=== PATIENT | male | born 1960 | race Caucasian/White ===

== ENCOUNTER 2018-12-01 16:42 | Inpatient (IN) | payer BC ==
[~2018-12-01] VITALS: Ht 180.3 cm; Wt 94.5 kg
[2018-12-01 16:47] VITALS: Ht 180.3 cm; Wt 94.5 kg
--- NOTE | 2018-12-01 17:09 | NUR ---
PT WALKED TO ROOM WITH NUMBNESS ON LEFT ARM. BUT NO NUMBNESS RIGHT NOW. PT SPEAKS CLEARLY NOW.
[2018-12-01 17:35] LABS: CALCIUM 9.1 mg/dL (8.5-10.1); CARBON DIOXIDE 23.8 mmol/L (21-32); CHLORIDE SERUM 105 mmol/L (98-107); CREATININE SERUM 1.2 mg/dL (0.7-1.3); GFR1 > 60 mL/min; GLUCOSE SERUM 158 mg/dL (74-106); POTASSIUM SERUM 3.6 mmol/L (3.5-5.1); SODIUM SERUM 141 mmol/L (136-145)
[2018-12-01 17:40] LABS: ALBUMIN 3.7 g/dL (3.4-5.0); ALKALINE PHOSPHATASE 85 U/L (46-116); ALT/SGPT 33 U/L (16-63); AST/SGOT 24 U/L (15-37); BILIRUBIN TOTAL 0.57 mg/dL (0.20-1.00)
[2018-12-01 17:51] LABS: BASOPHIL % 0.7 % (0-2); PLATELET COUNT 213 x10^3mcL (130-400); RED CELL DISTRIBUTION WIDTH 14.4 % (11.5-14.5)
--- NOTE | 2018-12-01 18:15 | NUR ---
DR. PARRISH REASSESSED PT AND TALKED TO PT AGAIN.
[2018-12-01] MEDS ORDERED: CARVEDILOL3.125 M1 PO (19:33)
[2018-12-01] MEDS ORDERED: GOOD SENSE ASPI81 M3 PO (19:34)
[2018-12-01] MEDS ORDERED: LISINOPRIL2.5 MG PO (19:34)
[2018-12-01] MEDS ORDERED: LIPI10 PO (19:34)
--- NOTE | 2018-12-01 19:35 | NUR ---
PT RESTING IN BED TALKING TO FAMILY OVER THE PHONE, NO SLURRED SPEECH NOTED. PT HAS NO COMPLAINTS AT THIS TIME. PT VITALS ARE WNL. NO ACUTE DISTRESS NOTED.
[2018-12-01] MEDS ORDERED: ASPIRIN ADULT L81 M5 PO (19:51)
[2018-12-01] MEDS ORDERED: CARVEDILOL6.25 M1 PO (19:51)
[2018-12-01] MEDS ORDERED: LIPITOR80 MG GT (19:51)
[2018-12-01] MEDS ORDERED: LISINOPRIL10 MG PO (19:52)
--- NOTE | 2018-12-01 19:56 | NUR ---
REPORT GIVEN TO ANDREY TANNER TO ASSUME CARE OF PT.
[2018-12-01 20:12] LABS: microscopic required? NO
[2018-12-01 20:21] VITALS: BP 137/75
--- NOTE | 2018-12-01 20:23 | NUR ---
RECEIVED PT FROM ED VIA MARCELLA. ORIENTED PT TO ROOM AND SURROUNDINGS. IV NOTED TO LFA PATENT AND INTACT. TELE 4 PLACED ON PT READING NSR. INSTRUCTED PT ON THE USE OF CALL LIGHT FOR ASSISTANCE. ENDORSED PT TO PRIMARY NURSE EPIFANIO
[2018-12-01 20:24] LABS: CHOLESTEROL/HDL RATIO 3.7; MAGNESIUM 2.2 mg/dL (1.8-2.4); PHOSPHOROUS 3.7 mg/dL (2.5-4.9)
[2018-12-01 20:27] LABS: UA SPECIFIC GRAVITY <=1.005 (1.005-1.035); urine erythrocyte NEGATIVE (NEGATIVE)
[2018-12-01 20:32] LABS: T3 TOTAL 1.25 ng/mL
[2018-12-01 20:37] LABS: AMPHETAMINE QUAL UR NONE DETECTED (See below)
[2018-12-01 20:41] LABS: FREE T4 1.01 ng/dL (0.76-1.46); FREE THYROXINE INDEX 2.7 ug/dL (1.4-4.5)
--- NOTE | 2018-12-02 00:30 | NUR ---
PT AWAKE LAYING DOWN IN BED. PT AAOX4, FOLLOW COMMANDS. ABLE TO MAKE NEEDS KNOWN. SPEECH CLEAR. NO FACIAL DROOP NOTED. DENIES H/A OR DIZZINESS AT THIS TIME. DENIES ANY NUMNESS OR TINGLING. BREATHING EVEN AND UNLABORED ON RA. NO ACUTE DISTRESS NOTED. NS RUNNING TO LFA AT 100ML/HR. SITE FREE FROM REDNESS AND SWELLING. BED AT LOWEST SETTING. SIDE RAILS X2 UP. CALL LIGHT WITHING REACH. WILL CONTINUE TO MONITOR.
--- NOTE | 2018-12-02 00:45 | NUR ---
CALLED THE CALL CENTER TO HAVE THE TELE NEURO CONSULT DONE. SET EVERYTHING READY IN THE ROOM. TELE NEURO COULD NOT BE DONE AT THIS TIME DUE TO MACHINE IS NOT WORKING. ER TELE NEURO MACHINE IS NOT AVAILABLE AT THIS TIME. WILL WAIT UNTIL ER MACHINE IS AVAILABLE. RESIDENT MADE AWARE. NO OTHER ORDERS RECEIVED. WILL CONTINUE TO MONITOR.
--- NOTE | 2018-12-02 04:11 | NUR ---
CALLED ER FOR TELE NEURO MACHINE. TELE NEURO STILL IN USE. AWAITING FOR ER TO CALLED BACK WHEN TELE NEURO AVAILABLE.
[2018-12-02 05:44] VITALS: BP 133/78
--- NOTE | 2018-12-02 06:23 | NUR ---
PT SLEPT WELL THROUGHOUT THE NIGHT. BREATHING EVEN AND UNLABORED ON RA. NO FACIAL DROOP NOTED. SPEECH CLEAR. DENIES H/A AND DIZZINESS. NS RUNNING TO LFA AT 100ML/HR. SITE FREE FROM REDNESS AND SWELLING. ALL NEEDS ASSESSED AND ATTENDED TO. NO ACUTE DISTRES NOTED. BED AT LOWEST SETTING. SIDE RAILS X2 UP. CALL LIGHT WITHING REACH. TELE NEURO CONSULT RECEIVED THIS MORNING AT [address] WILL FOLLOW UP WITH PHYSICIAN FOR FURTHER ORDERS. ALL QUESTIONS AND CONCERNS ANSWERED BY . PT STATES UNDERSTANDING. WILL ENDORSE CARE TO AM NURSE.
[2018-12-02 06:36] LABS: BASOPHIL % 0.8 % (0-2); PLATELET COUNT 189 x10^3mcL (130-400); RED CELL DISTRIBUTION WIDTH 14.5 % (11.5-14.5)
[2018-12-02 06:54] LABS: CALCIUM 8.4 mg/dL (8.5-10.1); CARBON DIOXIDE 27.6 mmol/L (21-32); CHLORIDE SERUM 107 mmol/L (98-107); GFR1 > 60 mL/min; GLUCOSE SERUM 86 mg/dL (74-106); MAGNESIUM 2.1 mg/dL (1.8-2.4); POTASSIUM SERUM 3.7 mmol/L (3.5-5.1); SODIUM SERUM 143 mmol/L (136-145)
--- NOTE | 2018-12-02 07:08 | NUR ---
RECEIVED REPORT FROM EPIFANIO TANNER. PATIENT SLEEPING COMFORTABYL IN BED. IV TO LFA IS PATENT AND INFUSING NS @ 100 ML/HR. NO REDNESS OR PAIN. TELE # [address] NO INDICATION OF CHEST PAIN. PT ON ROOM AIR. NO DISTRESS NOTED. ALL QUESTIONS AND CONCERNS ADDRESSED.
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
--- NOTE | 2018-12-02 14:40 | NUR ---
PLAVIX ADMINISTERED NOW PER MD ORDER. INFORMED PATIENT THAT MRI IS SCHEDULED FOR TODAY AT 1900. PT VERBALIZED UNDERSTANDING AND AGREES TO ALL RECOMMENDED TESTS LONG HE IS ABLE TO LEAVE TONIGHT.
--- NOTE | 2018-12-02 18:33 | NUR ---
NO SIGNIFICANT CHANGES THROUGHOUT THE DAY. PT WAITING TO BE TAKEN DOWN FOR MRI @ 1900. IV TO LAC IS PATENT AND INFUSING NS @ 100 ML/HR. NO REDNESS OR PAIN. TELE # [address] PT DENIES CHEST PAIN. NO RECURRENCE OF TIA SYMPTOMS. PT ON ROMM AIR. NO C/O SOB AND NO DISTRESS NOTED. WILL ENDORSE ALL CARE TO ONCOMING NURSE.
--- NOTE | 2018-12-02 19:10 | NUR ---
PT RECEIVED FROM THE DAY SHIFT RN. PT IS ALERT AND ORIENTED X4, CALM AND COOPERATIVE WITH CARE. NO ACUTE DISTRESS NOTED. PT HAS NO COMPLAINT OF PAIN AT THIS TIME. SAFETY AND COMFORT MEASURES MAINTAINED, CALL LIGHT WITHIN REACH. WILL CONTINUE TO MONITOR AT THIS TIME.
[2018-12-02 20:42] VITALS: BP 133/81
--- NOTE | 2018-12-03 00:06 | NUR ---
PT IS RESTING IN BED WITH EYES CLOSED AT THIS TIME. NO ACUTE DISTRESS NOTED. PT HAS BEEN CALM AND COOPERATIVE WITH CARE. ALERT AND ORIENTED X4, SAFETY AND COMFORT MEASURES MAINTAINED, BED IN LOWEST POSITION, CALL LIGHT WITHIN REACH.
--- NOTE | 2018-12-03 02:13 | NUR ---
PT IS RESTING IN BED WITH EYES CLOSED AT THIS TIME. NO ACUTE DISTRESS NOTED, SAFETY AND COMFORT MEASURES MAINTAINED, BED IN LOWEST POSITION, CALL LIGHT WITHIN REACH.
--- NOTE | 2018-12-03 04:05 | NUR ---
PT IS RESTING IN BED WITH EYES CLOSED AT THIS TIME. NO ACUTE DISTRESS NOTED. PT HAS BEEN CALM AND COOPERATIVE WITH CARE. NO COMPLAINT OF PAIN AT THIS TIME. SAFETY AND COMFORT MEASURES MAINTAINED, BED IN LOWEST POSITION, CALL LIGHT WITHIN REACH.
--- NOTE | 2018-12-03 05:17 | NUR ---
PT HAS RESTED IN LONG INTERVALS THORUGHOUT THE SHIFT, NO ACUTE DISTRESS NOTED. PT HAS NO COMPLAINT OF PAIN AT THIS TIME. PT IS SALINE LOCKED AT THIS TIME, IV IS PATENT AND INTACT. SAFETY AND COMFORT MEASURES MAINTAINED, BED IN LOWEST POSITION, CALL LIGHT WITHIN REACH. WILL ENDORSE CONTINUITY OF CARE TO THE ONCOMING RN.
[2018-12-03 05:38] VITALS: BP 127/83
[2018-12-03 07:12] LABS: CALCIUM 8.6 mg/dL (8.5-10.1); CARBON DIOXIDE 22.8 mmol/L (21-32); CHLORIDE SERUM 107 mmol/L (98-107); GFR1 > 60 mL/min; GLUCOSE SERUM 94 mg/dL (74-106); MAGNESIUM 2.2 mg/dL (1.8-2.4); PHOSPHOROUS 3.9 mg/dL (2.5-4.9); POTASSIUM SERUM 3.9 mmol/L (3.5-5.1); SODIUM SERUM 142 mmol/L (136-145)
[2018-12-03 07:34] LABS: BASOPHIL % 0.6 % (0-2); PLATELET COUNT 182 x10^3mcL (130-400)
[2018-12-03 07:43] LABS: RED CELL DISTRIBUTION WIDTH 14.7 % (11.5-14.5)
--- NOTE | 2018-12-03 08:50 | NUR ---
PT AWAKE, ALERT. A/OX4. PT ON ROOM AIR WITH NO RESP DISTRESS NOTED. PT ON TELE 4, DENIES CHEST PAIN. PT DENIES DIZZINESS OR WEAKNESS. PERIPHERAL PULSES PALPABLE, NO EDEMA NOTED. IV ACCESS LFA CDI SALINE LOCKED. PT REPORTS NO ISSUES WITH ELIMINATION. PT AMBULATORY AND STEADY. DENIES PAIN. SAFETY MEASURES IN PLACE. BED LOW AND LOCKED. CALL LIGHT WITHIN REACH.
[2018-12-03 09:30] VITALS: BP 120/79
--- NOTE | 2018-12-03 09:30 | NUR ---
DUE MEDICATIONS ADMINISTERED ORDERED. NO ACUTE DISTRESS OR DISCOMFORT NOTED AT THIS TIME.
--- NOTE | 2018-12-03 09:52 | NUR ---
RECEIVED PT FROM CERTIFIED PHARMACY TECHNICIAN. PT ASLEEP AT THIS TIME. NO ACUTE DISTRESS NOTED.
--- NOTE | 2018-12-03 11:30 | NUR ---
SPOKE WITH RADIOLOGIST REGARDING MRI PROCEDURE. UPDATED PT AND FAMILY REGARDING DETAILS. PER RADIOLOGIST PAPERWORK REGARDING PT STENTS SUFFICIENT IN MOVING FORWARD WITH PROCEDURE. PT AND FAMILY AWARE. PER RADIOLOGY PT DOES NOT NEED TO BE NPO FOR PROCEDURE, PT MADE AWARE. ALL QUESTIONS AND CONCERNS ADDRESSED AT THIS TIME. PT DENIES ANY PAIN OR WEAKNESS AT THIS TIME.
--- NOTE | 2018-12-03 13:19 | NUR ---
ALL NEEDS MET AT THIS TIME. CALL LIGHT WITHIN REACH.
[2018-12-03 13:45] VITALS: BP 109/85
[2018-12-03] MEDS ORDERED: CLOPIDOGREL75 M1 PO (16:48)
--- NOTE | 2018-12-03 17:44 | NUR ---
PATIENT SLEEPING AT THIS TIME. NO ACUTE DISTRESS OR DISCOMFORT NOTED.
[2018-12-03 18:06] VITALS: BP 118/77
--- NOTE | 2018-12-03 18:53 | NUR ---
PT STABLE AT THIS TIME. PT TAKEN BY WHEELCHAIR FOR MRI PROCEDURE. ALL NEEDS MET THROUGHOUT SHIFT. WILL CONTINUE TO MONITOR AND ENDORSE CARE TO FORM PRESSER.
--- NOTE | 2018-12-03 19:30 | NUR ---
RECEIVED REPORT FROM DAY SHIFT RN, ALL QUESTION AND CONCERNS ADDRESSED. PT IN RM 209A BED B RESTING IN SEMI BELLO. PT IS A/O X4, FOLLOWS COMMANDS AND SPEECH IS CLEAR. EYES OPEN SPONTANEOUSLY. CHEST RISE AND FALL EQUAL AND UNLABORED. VS STABLE AT THIS TIME. NO SIGNS OR COMPLAINTS OF ACUTE DISTRESS. FAMILY AT BEDSIDE. CALL LIGHT LEFT WITHIN REACH.
--- NOTE | 2018-12-03 19:55 | NUR ---
RECEIVED MRI RESULT AND RESIDENT NOTIFIED AND GIVEN RESULTS.
[2018-12-03 20:47] VITALS: BP 118/77
--- NOTE | 2018-12-03 21:00 | NUR ---
PT DC AT THIS TIME, ACI AND RX GIVEN TO PT AND PT VERBALIZED UNDERSTANDING. IV AND ID BAND REMOVED. PT AMBULATED OUT OF DEPT WITH STEADY WITH AND ELFT WITHOUT INCIDENT.
== END 2018-12-03 21:00 | disposition home or self-care (01) | DRG 69 ==
LOC: ED 16:42 → DU 19:38
PROVIDERS: Emergency Medicine; ADMIT General Practice
DX: G45.9 Transient cerebral ischemic attack, unspecified (principal); I10 Essential (primary) hypertension; E78.5 Hyperlipidemia, unspecified; Z95.1 Presence of aortocoronary bypass graft; I25.2 Old myocardial infarction; Z82.49 Family history of ischemic heart disease and other diseases of the circulatory system
CPT/HCPCS: 83880; 84439; A9577; G0378; J7030; Q0092